=== PATIENT | male | born 1980 | race American Indian/Alaskan Native ===

== ENCOUNTER 2021-12-28 05:35 | Emergency (ER) | payer MEDICAID ==
[2021-12-28] MEDS ORDERED: Ketorolac 30 MG/ML SDV IM ONE (06:06)
[2021-12-28] MEDS ORDERED: Orphenadrine 60 MG/2 ML Inj IM ONE (06:06)
== END 2021-12-28 07:02 | disposition home or self-care (01) ==
LOC: MW.ED 05:35
DX: M54.50 Low back pain, unspecified (principal)
CPT/HCPCS: 72100; 72100-26; 96372; 99283; J1885; J2360

== ENCOUNTER 2022-06-24 16:01 | Emergency (ER) | payer MEDICAID ==
[2022-06-24] MEDS ORDERED: Ibuprofen 400 MG Tab PO ONE (17:00)
[2022-06-24] MEDS ORDERED: Acetaminophen/HYDROcodone 325-5 MG Tab PO ONE (17:34)
== END 2022-06-24 18:17 | disposition home or self-care (01) ==
LOC: MW.ED 16:01
DX: S83.422A Sprain of lateral collateral ligament of left knee, initial encounter (principal); X50.1XXA Overexertion from prolonged static or awkward postures, initial encounter; Y93.01 Activity, walking, marching and hiking
CPT/HCPCS: 73562; 99283; A9270